=== PATIENT | female | born 1985 | race African-American/Black ===

== ENCOUNTER 2024-01-31 11:10 | Emergency (ER) | payer OTHER ==
[~2024-01-31] VITALS: Ht 162.6 cm; Wt 130.0 kg
[2024-01-31 11:14] VITALS: O2SAT 99
[2024-01-31] MEDS ORDERED: NAPR500T7 MT (14:48)
[2024-01-31] MEDS ORDERED: LIDO700A30 TP (14:48)
[2024-01-31 15:00] VITALS: BP 144/77; PULSE 83; RESP 16; TEMP 36.78072; O2SAT 99
== END 2024-01-31 13:50 | disposition left against medical advice (07) ==
LOC: ER 13:10
DX: M79.603 Pain in arm, unspecified (principal); Z53.21 Procedure and treatment not carried out due to patient leaving prior to being seen by health care provider